=== PATIENT | male | born 1965 | race Caucasian/White ===

== ENCOUNTER 2017-08-23 17:02 | Emergency (ER) | payer BC, OTHER ==
[2017-08-23 17:08] VITALS: BP 120/60; BMI 36.9
[2017-08-23] MEDS ORDERED: NS 1000 ML 1,000 ML IV ONE (18:15)
--- NOTE | 2017-08-23 18:15 | DR.ABDMALE ---
HPI - Time seen Time seen: 18:05 - PCP Primary Care Physician: DEXTER - HPI comment HPI Comment: WORSE WITH FOOD INTAKE. HISTORY BOWEL OBSTRUCTION DUE TO ADHESION.NO FEVER. MEDS AT HOME NOT HELPING. - Complaint Chief Complaint Doctors Comments: ABDOMINAL PAIN, N/V TIMES 3 DAYD. Chief Complaint:: PATIENT STATED THAT HE HAS ADHESIONS AND HE THINKS IT IS CLOGGED UP. HE STATED THAT THIS WEEKEND HE HAS BEEN VOMITING AND DIARRHEA AND HAS NOT EATTEN ANYTHING IN COUPLE OF DAYS. - Reviewed Nurses Notes Review: Yes - Mode of arrival Mode of Arrival: Ambulatory - Timing Onset of Chief Complaint: 08/20/17 Came on: Suddenly - Duration Duration: Intermittent Duration: Days - Location Location: [facility] - Severity Severity: Moderate - Quality Quality: Sharp - Context Onset: Suddenly History of: Abdominal surgery, Bowel obstruction, Similar pain (dx) - Modifying factors Worsening Factors: Food Improving Factors: Nothing - Associated signs and symptoms Associated Signs and Symptoms: Nausea, Vomiting PMH - PMH Past Medical History: Yes Past Medical History: Hypertension Past Surgical History: Yes Surgical History: Bowel Resection, Cholecystectomy Past Surgical History Comment: ISAÍAS - Family History History of Family Medical Conditions: No - Social History Does patient currently use any type of tobacco product: No Have you used tobacco products in the last 12 months: No Type of Tobacco Use: None Does any household member use tobacco: No Alcohol Use: None Do you use any recreational Drugs:: No Lives With: Family Lives Where: Home - infectious screening In the last 2 months have you had wt loss of >10#?: NO Have you had fever, night sweats or hemotysis?: No Have you traveled outside the country in the last 6 months?: No Isolation: Standard ROS - Review of Systems Constitutional: Weakness, Fatigue Eyes: No Symptoms Reported ENTM: No Symptoms Reported Respiratoy: No Symptoms Reported Cardiovascular: No Symptoms Reported Gastrointestinal/Abdominal: Abdominal Pain, Nausea, Vomiting Genitourinary: No Symptoms Reported Neurological: No Symptoms Reported Musculoskeletal: Muscle Pain Integumentary: No Symptoms Reported Hematologic/Lymphatic: No Symptoms Reported Endocrine: No Symptoms Reported All Other Systems: Reviewed and Negative PE - Vital Signs Vital Signs: Pulse Resp BP Pulse Ox 08/23/17 17:04 90 20 120/60 97 10/06/12 12:16 139/80 - General Limitations: No Limitations General Appearance: Alert - Head Head Exam: Normal Inspection - Eyes Eye exam: Normal Appearance - ENT ENT Exam: Normal External Ear Exam - Neck Neck Exam: Trachea Midline - Chest Chest Inspection: Symmetric Chest Wall Rise - Respiratory Respiratory Exam: Normal Lung Sounds Bilat Respiratory Exam: Bilateral Clear to Auscultation - Cardiovascular Cardiovascular Exam: Regular Rate, Normal Rhythm, Normal Heart Sounds - Abdominal Exam Abdominal Exam: Normal Bowel Sounds, Soft, Tenderness Abdominal Tenderness: LUQ, LLQ, Epigastrium, Moderate - Rectal Rectal Exam: Deferred - Back Back Exam: Normal Inspection - Extremeties Extremities Exam: Normal Inspection - Exam: Male: Deferred - Neurologic Neurological Exam: Alert, Oriented X3. negative: Motor Sensory Deficit - Psychiatric Psychiatric Exam: Normal Affect, Normal Mood - Skin Skin Exam: Normal Color MDM - Additional Information Obtained From Additional information provided by: Family - Differential Diagnosis Differential Diagnosis: Bowel Obstruction, Diverticular disease, Gastritus/PUD, Inflammatory BD, Ischemic Bowel, Pancreatitis, Urinary tract infection, Urolithiasis Course - Treatment Treatment: SEE ORDERS - Education/Counseling Education/Counseling: Patient, Family, Education Educated On: Treatment, Diagnosis, Needs for Follow Up ROR - Labs Reviewed Laboratory Results Reviewed?: Yes Result Diagrams: 08/23/17 18:20 08/23/17 18:20 Laboratory: WBC 6.1 X10^3/uL (3.6-10.0) 08/23/17 18:20 RBC 4.70 X10^6/uL (4.7-6.0) 08/23/17 18:20 Hgb 13.3 g/dL (13.5-18.0) L 08/23/17 18:20 Hct 39.7 % (42.0-54.0) L 08/23/17 18:20 MCV 84.5 fL (80.0-100.0) 08/23/17 18:20 MCH 28.3 pg (27.0-34.0) 08/23/17 18:20 MCHC 33.6 g/dL (33.0-35.0) 18 18:20 RDW 14.4 % (11.6-16.5) 08/23/17 18:20 Plt Count 187 X10^3/uL (150.0-450.0) 08/23/17 18:20 MPV 9.3 fL (7.4-11.0) 08/23/17 18:20 Neut % (Auto) 65.3 % (42.0-75.0) 08/23/17 18:20 Lymph % (Auto) 22.8 % (21.0-51.0) 08/23/17 18:20 [place] % (Auto) 9.8 % (0.0-13.0) 08/23/17 18:20 Eos % (Auto) 1.8 % (0.9-2.9) 08/23/17 18:20 Baso % (Auto) 0.3 % (0.2-1.0) 08/23/17 18:20 Neut # (Auto) 4.0 x10^3/uL (2.2-4.8) 08/23/17 18:20 Lymph # (Auto) 1.4 X10^3/uL (1.3-2.9) 08/23/17 18:20 [place] # (Auto) 0.6 x10^3/uL (0.3-0.8) 08/23/17 18:20 Eos # (Auto) 0.1 x10^3/uL (0.0-0.2) 08/23/17 18:20 Baso # (Auto) 0.0 X10^3/uL (0.0-0.1) 08/23/17 18:20 Absolute Nucleated RBC 0.0 /100WBC 08/23/17 18:20 Sodium 136 mmol/L (136-145) 08/23/17 18:20 Corrected Sodium TNP 08/23/17 18:20 Potassium 3.8 mmol/L (3.5-5.1) 08/23/17 18:20 Chloride 101 mmol/L (98-107) 08/23/17 18:20 Carbon Dioxide 25.9 mmol/L (21-32) 08/23/17 18:20 BUN 38 mg/dL (7-18) H 08/23/17 18:20 Creatinine 1.58 mg/dL (0.70-1.30) H 08/23/17 18:20 Est GFR (MDRD) Af Amer 60 (>60) 08/23/17 18:20 Est GFR (MDRD) Non-Af 49 (>60) L 08/23/17 18:20 Glucose 106 mg/dL (65-99) H 08/23/17 18:20 Calcium 8.1 mg/dL (8.5-10.1) L 08/23/17 18:20 Corrected Calcium TNP 08/23/17 18:20 Total Bilirubin 0.60 mg/dL (0.2-1.0) 08/23/17 18:20 AST 22 Units/L (15-37) 08/23/17 18:20 ALT 51 Units/L (12-78) 08/23/17 18:20 Alkaline Phosphatase 59 Units/L (46-116) 08/23/17 18:20 Total Protein 7.6 g/dL (6.4-8.2) 08/23/17 18:20 Albumin 4.1 g/dL (3.4-5.0) 08/23/17 18:20 Globulin 3.5 g/dL (2.5-4.5) 08/23/17 18:20 Albumin/Globulin Ratio 1.2 Ratio (1.1-2.1) 08/23/17 18:20 Amylase 41 Units/L (25-115) 08/23/17 18:20 Lipase 94 Units/L (73-393) 08/23/17 18:20 Specimen Type Clean catch urine 08/23/17 19: Urine Color Yellow (YELLOW) 08/23/17 19: Urine Appearance Clear (CLEAR) 08/23/17 19: Urine pH 5.0 (5.0 - 8.0) 08/23/17 19: Ur Specific [place] 1.020 (1.000-1.030) 08/23/17 19: Urine Protein 1+ (NEGATIVE) 08/23/17 19: Urine Glucose (UA) Negative (NEGATIVE) 08/23/17 19: Urine Ketones Negative (NEGATIVE) 08/23/17 19: Urine Occult Blood Negative (NEGATIVE) 08/23/17 19: Urine Nitrite Negative (NEGATIVE) 08/23/17 19: Urine Bilirubin Negative (NEGATIVE) 08/23/17 19: Urine Urobilinogen Normal (NORMAL) 08/23/17 19:31 Ur Leukocyte Esterase 1+ (NEGATIVE) 08/23/17 19: Urine RBC None seen /HPF (NONE SEEN) 03/19/18 19:31 Urine WBC None seen /HPF (NONE SEEN) 08/23/17 19:31 Ur Squamous Epith Cells Rare /HPF (NEGATIVE) 08/23/17 19:31 Amorphous Sediment 1+ /HPF (NEGATIVE) 08/23/17 19:31 Urine Bacteria Negative /HPF (NEGATIVE) 08/23/17 19:31 Hyaline Casts Few /LPF (NEGATIVE) 08/23/17 19:31 Ur Culture Indicated? No/not indicated 08/23/17 19:31 - XRAY XRAY Interpreted by: Radiologist XRAY Findings: REPORT DISCUSS WITH PATIENT. - Diagnosis Discharge Problem: Abdominal pain - Discharge Plan Disposition: HOME, SELF-CARE Condition: Stable - Follow ups/Referrals Follow ups/Referrals: KATE RENTERIA [Primary Care Provider] - 08/24/17 - Instructions Instructions: Abdominal Pain, Adult, [id number] Additional Instructions: RETURN TO ED IF WORSE.
[2017-08-23] MEDS ORDERED: NS 1000 ML 1,000 ML ONE (18:16)
[2017-08-23] MEDS ORDERED: PEPCID 20 MG IV PREMIX* 20 MG/50 ML BAG IV ONE ×2 (18:18→18:27)
[2017-08-23] MEDS ORDERED: ZOFRAN INJ 4 MG VIAL IVP ONE (18:21)
[2017-08-23] MEDS ORDERED: DEMEROL INJ IVP ONE (18:21)
[2017-08-23] MEDS ORDERED: ZOFRAN INJ 4 MG VIAL ONE (18:27)
[2017-08-23] MEDS ORDERED: DEMEROL INJ ONE (18:27)
[2017-08-23 18:28] LABS: BASOPHILS % (AUTO) 0.3 % (0.2-1.0); EOSINOPHILS # (AUTO) 0.1 x10^3/uL (0.0-0.2); EOSINOPHILS % (AUTO) 1.8 % (0.9-2.9); HEMATOCRIT 39.7 % (42.0-54.0); HEMOGLOBIN 13.3 g/dL (13.5-18.0); LYMPHOCYTES # (AUTO) 1.4 X10^3/uL (1.3-2.9); LYMPHOCYTES % (AUTO) 22.8 % (21.0-51.0); MEAN CORPUSCULAR HEMOGLOBIN 28.3 pg (27.0-34.0); MEAN CORPUSCULAR HGB CONC 33.6 g/dL (33.0-35.0); MEAN CORPUSCULAR VOLUME 84.5 fL (80.0-100.0); MEAN PLATELET VOLUME 9.3 fL (7.4-11.0); MONOCYTES # (AUTO) 0.6 x10^3/uL (0.3-0.8); MONOCYTES % (AUTO) 9.8 % (0.0-13.0); NEUTROPHILS % (AUTO) 65.3 % (42.0-75.0); PLATELET COUNT 187 X10^3/uL (150.0-450.0); RED CELL DISTRIBUTION WIDTH 14.4 % (11.6-16.5); WHITE BLOOD COUNT 6.1 X10^3/uL (3.6-10.0)
[2017-08-23 18:40] LABS: ALANINE AMINOTRANSFERASE 51 Units/L (12-78); ALBUMIN 4.1 g/dL (3.4-5.0); ALKALINE PHOSPHATASE 59 Units/L (46-116); AMYLASE 41 Units/L (25-115); ASPARTATE AMINO TRANSFERASE 22 Units/L (15-37); BLOOD UREA NITROGEN 38 mg/dL (7-18); CALCIUM 8.1 mg/dL (8.5-10.1); CARBON DIOXIDE 25.9 mmol/L (21-32); CHLORIDE 101 mmol/L (98-107); CREATININE 1.58 mg/dL (0.70-1.30); LIPASE 94 Units/L (73-393); SODIUM 136 mmol/L (136-145); TOTAL PROTEIN 7.6 g/dL (6.4-8.2); eGFR BLACK RACES 60 (>60); eGFR NON BLACK RACES 49 (>60)
[2017-08-23 20:00] LABS: BILIRUBIN,URINE NEGATIVE (NEGATIVE); BLOOD/HEMOGLOBIN,URINE NEGATIVE (NEGATIVE); GLUCOSE, URINE NEGATIVE (NEGATIVE); KETONES,URINE NEGATIVE (NEGATIVE); LEUKOCYTE ESTERASE ,URINE 1+ (NEGATIVE); NITRITES,URINE NEGATIVE (NEGATIVE); PROTEIN,URINE 1+ (NEGATIVE); UROBILINOGEN,URINE NORMAL (NORMAL)
[2017-08-23 20:21] LABS: APPEARANCE,URINE CLEAR (CLEAR); COLOR,URINE YELLOW (YELLOW)
[2017-08-23 20:22] LABS: AMORPHOUS SEDIMENT,UR 1+ /HPF (NEGATIVE); BACTERIA,URINE NEGATIVE /HPF (NEGATIVE); HYALINE CASTS, URINE FEW /LPF (NEGATIVE); RBC,URINE NONE SEEN /HPF (NONE SEEN); SQUAMOUS EPITHELIAL CELL,UR RARE /HPF (NEGATIVE)
--- NOTE | 2017-08-23 20:58 | CT ---
Indication: Pain Exam: CT abdomen and pelvis without contrast. Technique: Routine transaxial images were obtained from lung bases through pubic symphysis without co ntrast and reconstructed 5 mm intervals . Automated dose control was utilized. Comparison: None. Findings: There is mild linear densities scattered along the lung bases posteriorly which is more pro minent on the left. The liver and spleen are normal size density. No focal lesion is seen. The gallbl adder has been removed with clips in the gallbladder fossa. The pancreas, bile ducts, and adrenals ar e normal. The kidneys are normal size with no hydronephrosis, renal stone , or mass. The ureters are normal caliber. The bladder is unremarkable. The prostate gland is top-normal in size. The appendix i s not well visualized with no pericecal inflammation. The bones are intact with no aggressive osseous lesion seen. Impression: Mild bibasilar discoid atelectasis or scarring posteriorly which is more prominent on the left , sugg est follow-up with serial chest x-rays . Is status post cholecystectomy with no acute intra-abdominal abnormality seen . No hydronephrosis or renal stones and no CT evidence of urinary obstruction No pelvic mass or inflammation. Reported By:
== END 2017-08-23 22:03 | disposition home or self-care (01) ==
LOC: ER 17:14
DX: R10.12 Left upper quadrant pain (principal)
CPT/HCPCS: 36415; 74176; 80053; 81001; 82150; 83690; 85025; 96365; 96367; 96374; 96375; 99283; 99284; A4222; S0028; J2175; J2405